=== PATIENT | male | born 1925 | race Caucasian/White ===

== ENCOUNTER 2017-02-15 10:18 | Day surgery (SDC) | payer OTHER ==
[~2017-02-15] VITALS: Ht 177.8 cm; Wt 76.0 kg
[2017-02-15] MEDS ORDERED: ATOR10TA65 PO (10:43)
[2017-02-15] MEDS ORDERED: BICA50TA4 PO (10:44)
[2017-02-15] MEDS ORDERED: BETH50TA PO (10:44)
[2017-02-15] MEDS ORDERED: CARV12.579 PO (10:45)
[2017-02-15] MEDS ORDERED: NEPH PO (10:46)
[2017-02-15] MEDS ORDERED: SENN-53 PO (10:46)
[2017-02-15] MEDS ORDERED: TAMS0.4C2 PO (10:46)
[2017-02-15] MEDS ORDERED: POLY17PO6 PO (10:47)
[2017-02-15] MEDS ORDERED: PANT40TA3 PO (10:47)
[2017-02-15] MEDS ORDERED: MEG40/1 PO (10:48)
[2017-02-15] MEDS ORDERED: SITA100T8 PO (10:49)
[2017-02-15] MEDS ORDERED: HYDR-906 PO (10:50)
[2017-02-15] MEDS ORDERED: APIX2.5T PO (10:51)
[2017-02-15] MEDS ORDERED: FURO-109 PO (10:51)
[2017-02-15] MEDS ORDERED: FLUT16SP17 NASAL (10:51)
[2017-02-15 10:58] LABS: BASOPHILS % 0.6 % (0.0-2.0); EOSINOPHILS # 0.3 10^3/ul (0.0-0.5); HEMATOCRIT 34.3 % (42.0-52.0); HEMOGLOBIN 11.4 g/dl (14.0-18.0); LYMPHOCYTES # 0.8 10^3/ul (0.8-2.9); MEAN CORPUSCULAR HEMOGLOBIN 28.6 pg (29.0-33.0); MEAN CORPUSCULAR HGB CONC 33.2 g/dl (32.0-37.0); MEAN PLATELET VOLUME 9.2 fl (7.4-10.4); MONOCYTE # 0.5 10^3/ul (0.3-0.9); MONOCYTES % 7.9 % (0.0-11.0); NEUTROPHIL # 4.7 10^3/ul (1.6-7.5); PLATELET COUNT 249 10^3/UL (140-415); RED BLOOD COUNT 3.99 10^6/ul (4.70-6.10); WHITE BLOOD COUNT 6.4 10^3/ul (4.8-10.8)
[2017-02-15 11:04] VITALS: Ht 177.8 cm; Wt 76.0 kg
[2017-02-15 11:05] VITALS: BP 178/93; PULSE 95; RESP 16
[2017-02-15 11:18] LABS: INR 0.98; PARTIAL THROMBOPLASTIN TIME 30.5 Sec (25.0-35.0)
[2017-02-15 11:20] LABS: ALBUMIN 3.6 g/dl (3.3-4.9); BILIRUBIN,INDIRECT 0.2 mg/dl (0-1.1); BILIRUBIN,TOTAL 0.2 mg/dl (0.2-1.3)
[2017-02-15 11:24] LABS: CALCIUM 8.5 mg/dl (8.4-10.2); CREATININE 1.63 mg/dl (0.61-1.24); POTASSIUM 4.1 mmol/L (3.5-5.1)
[2017-02-15 11:25] LABS: ALBUMIN/GLOBULIN RATIO 1.05
[2017-02-15] MEDS ORDERED: IODIXANOL LOCM 100 ML BTL ONE (12:00)
[2017-02-15] MEDS ORDERED: HEPARIN 1000 UNITS/NS (A-LINE) 1,000 ML ONE (12:00)
[2017-02-15] MEDS ORDERED: LIDOCAINE 2% (SDV) 5 ML INJ ONE (12:00)
[2017-02-15] MEDS ORDERED: MIDAZOLAM 1 MG/ML 2 ML INJ ONE (12:01)
[2017-02-15] MEDS ORDERED: FENTAnyl 50 MCG/ML VIAL ONE (12:01)
--- NOTE | 2017-02-15 13:16 | SIPON ---
Date/Time of Note Date/Time of Note DATE: 02/15/17 TIME: 13:15 Operative Report Preoperative Diagnosis L iliac aneurysm Postoperative Diagnosis same Operation/Procedure Performed aortogram, iliofemoral runoff Surgeon see signature line economic research assistant none Anesthesia: other Estimated blood loss: minimal Transfusion Required none Specimen none Grafts/Implants none Complications none CRAIG SALAZAR MD Feb 15, 2017 13:16
[2017-02-15] MEDS ORDERED: LABETALOL HCL 20MG INJ ONE (13:21)
[2017-02-15 14:15] VITALS: BP 164/79; PULSE 60; RESP 16
[2017-02-15 17:30] VITALS: BP 165/78; PULSE 80; RESP 16
--- NOTE | 2017-02-15 18:32 | OPR ---
DATE OF OPERATION: 02/15/2017 PREOPERATIVE DIAGNOSIS: Left common iliac artery aneurysm. POSTOPERATIVE DIAGNOSIS: Left common iliac artery aneurysm. PROCEDURE PERFORMED: Abdominal aortogram with bilateral iliofemoral runoff. SURGEON: Craig Smith MD ANESTHESIA: Local anesthesia with sedation. ESTIMATED BLOOD LOSS: Minimal. COMPLICATIONS: No intraprocedural complications. INDICATIONS: This is an 89-year-old gentleman who had a CAT scan of the abdomen noncontrast at [facility] several months ago and it suggested a good sized left iliac aneurysm. It was a noncontras t study and it was reportedly more than 3 cm. I brought him in today for an angiogram and possible intervention. The base of the aneurysm was not very large. No intervention was performed. PROCEDURE: The patient was brought to the laborer concrete plant and placed on the table in supine position. The groins were prepped and draped in the usual sterile fashion. I used ultrasound to identify the rig ht common femoral artery. It was patent and fully compressible. I then infiltrated over the artery using about 5 mL of 1% Xylocaine, using micropuncture needle to enter the right common femoral brielle ry under ultrasound guidance. An 0.018 wire was inserted through the needle into the artery then a micropuncture sheath was advanced over the wire into the artery. I then advanced 0.035 J-wire up in to the abdominal aorta. There was a lot of tortuosity in the iliacs, but they were nonconclusive. I then exchanged the micropuncture sheath for a 5-Kittitian sheath over the wire and advanced an Omnifl ush catheter into the abdominal aorta and infrarenal aorta. I did an aortogram. I brought it down lower to the bifurcation and then did bilateral oblique views. No intervention was performed. I th en removed the catheter sheaths and wires and closed the right groin puncture site using 5-Kittitian My nx device. FINDINGS OF ANGIOGRAPHY: The infrarenal aorta has a lot of calcification and diffuse irregularity b ut no significant stenosis. 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 Both common external and inte rnal iliac arteries are patent. The left common iliac artery is ectatic, but nonaneurysmal. It is definitely not a pseudoaneurysm or any type of saccular aneurysm. It is in the order 2 to 2.5 cm in diameter. There is no occlusive disease in the iliacs. The common femoral, superficial and profun da femoral arteries were all widely patent, again with a lot of irregularity and calcification, but no significant stenosis. I was happy with the results at the end of the procedure. He does not nee d any intervention at this time. We will just keep on eye on it and if in the future it enlarges or becomes symptomatic, would consider re-intervention. Dictated By: CRAIG WEINBERG/LITO Conf#: [id number] DID#: [id number]
--- NOTE | 2017-02-16 09:25 | RADRPT ---
Vent Rate: 73 bpm RR Interval: 0 msec OK Interval: 204 msec QRS Duration: 166 msec QT Interval: 476 msec QTC Interval: 524 msec P-R-T [place]: 0 - 0 - 82 degrees V pacing Electronically Signed By: [place] Marquis [id number]
== END 2017-02-15 19:20 | disposition home or self-care (01) ==
LOC: SDS 10:18
PROVIDERS: ATTEND Surgery Vascular Surgery
DX: Z03.89 Encounter for observation for other suspected diseases and conditions ruled out (principal)
CPT/HCPCS: 36200; 75630; 80053; 82962; 85025; 85610; 85730; 93005; C1894; J1644; J2250; J3010; Q9967